=== PATIENT | male | born 1995 | race Caucasian/White ===

== ENCOUNTER 2025-05-27 18:40 | Emergency (ER) | payer OTHER ==
[~2025-05-27] VITALS: Ht 162.6 cm; Wt 64.0 kg
[2025-05-27 18:47] VITALS: O2SAT 100
[2025-05-27 21:04] VITALS: TEMP 36.8; O2SAT 100
[2025-05-27 21:06] VITALS: BP 110/77; PULSE 80; RESP 16
[2025-05-27] MEDS: IBUPROFEN 600MG TABLET PO ONE (21:06)
== END 2025-05-27 21:25 | disposition home or self-care (01) ==
LOC: ER 18:40
DX: M25.512 Pain in left shoulder (principal); M25.532 Pain in left wrist; Z65.3 Problems related to other legal circumstances
CPT/HCPCS: 73030; 73110; 99284; A4565